=== PATIENT | male | born 1995 | race Caucasian/White ===

== ENCOUNTER 2016-08-24 14:59 | Emergency (ER) | payer BC ==
[2016-08-24 16:00] VITALS: BP 121/64
--- NOTE | 2016-08-24 16:26 | UC ---
Throat Pain/Nasal Daron HPI - HPI Summary HPI Summary: Fever, chills, and fatigue starting about 2 weeks ago. Was seen at [facility] 2 days ago because his throat was swelling up and he had LUQ pain. Was dx with mono with [facility], told to seek care if he got to the point of difficulty swallowing. Now his throat really hurts, is using lozenges s effect. Did not have RST run 2 days ago. - History of Current Complaint Chief Complaint: UCGeneralIllness Stated Complaint: SORE THROAT Time Seen by Provider: 08/24/16 16:06 Hx Obtained From: Patient Onset/Duration: Gradual Onset, Lasting Weeks Severity: Moderate Cough: None Associated Signs & Symptoms: Positive: Fever. Negative: Sinus Discomfort, Vomiting - Allergies/Home Medications Allergies/Adverse Reactions: Allergies Allergy/AdvReac Type Severity Reaction Status Date / Time No Known Allergies Allergy Verified 08/24/16 15:53 PMH/Surg Hx/FS Hx/Imm Hx Endocrine History Of: Denies: Diabetes Cardiovascular History Of: Denies: Hypertension, Pacemaker/ICD - Surgical History Surgical History: None - Family History Known Family History: Positive: Other - mom hx of bronchitis Negative: Hypertension, Diabetes - Social History Occupation: Student Lives: Alone Alcohol Use: None Substance Use Type: None Smoking Status (MU): Never Smoked Tobacco Review of Systems Constitutional: Negative Skin: Negative Eyes: Negative ENT: Sore Throat Respiratory: Negative Cardiovascular: Negative Gastrointestinal: Abdominal Pain Genitourinary: Negative Motor: Negative Neurovascular: Negative Musculoskeletal: Negative Neurological: Negative Psychological: Negative All Other Systems Reviewed And Are Negative: Yes Physical Exam Triage Information Reviewed: Yes Appearance: No Pain Distress, Pain Distress - with swallowing Vital Signs: Initial Vital Signs Temp 98.6 F 08/24/16 15:54 Pulse 120 08/24/16 15:54 Resp 16 08/24/16 15:54 BP 121/64 08/24/16 15:54 Pulse Ox 97 08/24/16 15:54 Vital Signs Reviewed: Yes Eye Exam: Normal Eyes: Positive: Conjunctiva Clear ENT: Positive: Hearing grossly normal, TMs normal, Tonsillar swelling - marked, Tonsillar exudate. Negative: Nasal congestion Dental Exam: Normal Neck: Positive: Enlarged Nodes @ - cervical Respiratory Exam: Normal Respiratory: Positive: Chest non-tender, Lungs clear, Normal breath sounds, No respiratory distress, No accessory muscle use Cardiovascular: Positive: No Murmur, Tachycardia Musculoskeletal Exam: Normal Neurological Exam: Normal Neurological: Positive: Alert Psychological Exam: Normal Skin Exam: Normal Throat Pain/Nasal Course/Dx - Differential Dx/Diagnosis Provider Diagnoses: mononucleosis Discharge - Discharge Plan Condition: Stable Disposition: HOME Prescriptions: predniSONE TAB* [Deltasone TAB*] 40 mg PO DAILY #10 tab Patient Education Materials: Mononucleosis (ED) Referrals: Johnnie Wade MD [Primary Care Provider] - 2 Weeks Additional Instructions: Rapid strep negative. Please followup with your primary care provider within 2 weeks to recheck your mono symptoms. In addition to the prednisone (and especially once it is gone), you can take 400mg ibuprofen every 4-6 hours as needed for pain.
== END 2016-08-24 16:47 | disposition home or self-care (01) ==
LOC: UCCORT 14:59
DX: B27.90 Infectious mononucleosis, unspecified without complication (principal)
CPT/HCPCS: 87651; 99212; G0463